=== PATIENT | male | born 1955 | race Hispanic/Latino ===

== ENCOUNTER 2025-01-13 03:40 | Emergency (ER) | payer OTHER, SELFPAY ==
[~2025-01-13] VITALS: Ht 172.7 cm; Wt 81.0 kg
[2025-01-13 04:28] LABS: HEMATOCRIT 40.1 % (42.0-52.0); HEMOGLOBIN 13.5 g/dl (13.5-17.5); MEAN CORPUSCULAR HEMOGLOBIN 30.5 pg (27.0-33.0); MEAN CORPUSCULAR HGB CONC 33.7 g/dl (32.0-36.5); MEAN CORPUSCULAR VOLUME 90.7 fl (80.0-96.0); PLATELET COUNT, AUTOMATED 206 10^3/uL (150-450); RED BLOOD COUNT 4.42 10^6/uL (4.30-6.10); WHITE BLOOD COUNT 6.3 10^3/uL (4.0-10.0)
[2025-01-13 04:44] LABS: BLOOD UREA NITROGEN 16 MG/DL (9-23); CALCIUM LEVEL 8.5 MG/DL (8.3-10.6); CARBON DIOXIDE LEVEL 24 MMOL/L (20-31); CHLORIDE LEVEL 105 MMOL/L (98-107); CREATININE FOR GFR 0.79 MG/DL (0.70-1.30); GLOMERULAR FILTRATION RATE > 90.0 (>49); GLUCOSE, FASTING 198 MG/DL (74-106); POTASSIUM SERUM 3.6 MMOL/L (3.5-5.1); SODIUM LEVEL 142 MMOL/L (136-145)
[2025-01-13] MEDS ORDERED: APIDINJ2 SC (06:52)
[2025-01-13] MEDS ORDERED: SERO1TAB3 PO (06:52)
[2025-01-13] MEDS ORDERED: LEVO50CA2 PO (06:52)
[2025-01-13] MEDS ORDERED: ACET-897 PO (06:52)
[2025-01-13] MEDS ORDERED: ATOR1TAB21 PO (06:52)
[2025-01-13] MEDS ORDERED: INSULANT SC (06:52)
[2025-01-13 07:23] VITALS: BP 148/84; TEMP 98; O2SAT 98
== END 2025-01-13 07:35 | disposition home or self-care (01) ==
LOC: M ED 03:40
DX: E11.649 Type 2 diabetes mellitus with hypoglycemia without coma (principal); T38.3X1A Poisoning by insulin and oral hypoglycemic [antidiabetic] drugs, accidental (unintentional), initial encounter; R00.1 Bradycardia, unspecified; Z79.1 Long term (current) use of non-steroidal anti-inflammatories (NSAID); Z79.4 Long term (current) use of insulin; Z79.899 Other long term (current) drug therapy